=== PATIENT | female | born 1940 | race Two or more races ===

== ENCOUNTER 2023-02-18 07:11 | Day surgery (SDC) | payer MEDICARE, MEDICAID ==
[~2023-02-18] VITALS: Ht 170.2 cm; Wt 90.7 kg
[~2023-02-18 07:11] MED LIST: AMLO1TAB23 PO; ESCI1TAB37 PO; HYDR-4296 PO; INSU70IN3 SC; LEVO50TA7 PO; LOSA100T33 PO; METF-370 PO; OMEG300C7 OR; ROSU10TA16 PO
[2023-02-18] MEDS ORDERED: LIDOCAINE VISCOUS 2% 15ML UD MT STA (07:31)
[2023-02-18] MEDS ORDERED: fentaNYL CITRATE 100 MCG/2 ML VL IV ONE (07:45)
[2023-02-18] MEDS ORDERED: MIDAZOLAM HCL 2MG/2ML 2ml VIAL (1mg/ml) IV ONE (07:45)
[2023-02-18] MEDS ORDERED: MIDAZOLAM HCL 2MG/2ML 2ml VIAL (1mg/ml) ONE (08:16)
[2023-02-18] MEDS ORDERED: fentaNYL CITRATE 100 MCG/2 ML VL ONE (08:16)
[2023-02-18 08:40] VITALS: BP 136/63
[2023-02-18 08:57] VITALS: BP 97/50
[2023-02-18 09:12] VITALS: BP 137/56
[2023-02-18 09:27] VITALS: BP 138/54
[2023-02-18 09:42] VITALS: BP 130/63
[2023-02-18 09:54] VITALS: BP 162/70
== END 2023-02-18 10:06 | disposition home or self-care (01) ==
LOC: CATH 07:11
PROVIDERS: ATTEND Internal Medicine Cardiovascular Disease
DX: I08.2 Rheumatic disorders of both aortic and tricuspid valves (principal); I10 Essential (primary) hypertension; E11.9 Type 2 diabetes mellitus without complications; G47.33 Obstructive sleep apnea (adult) (pediatric); E66.9 Obesity, unspecified; Z79.899 Other long term (current) drug therapy; Z79.84 Long term (current) use of oral hypoglycemic drugs
CPT/HCPCS: 93312; J2250; J3010; J7060; 99152

== ENCOUNTER 2023-02-22 07:13 | Day surgery (SDC) | payer MEDICARE, MEDICAID ==
[~2023-02-22] VITALS: Ht 170.2 cm; Wt 90.7 kg
[2023-02-22] MEDS ORDERED: ANGIOMAX 250 MG VIAL IV ONE (08:07)
[2023-02-22] MEDS ORDERED: fentaNYL CITRATE 100 MCG/2 ML VL ONE (08:07)
[2023-02-22] MEDS ORDERED: MIDAZOLAM HCL 2MG/2ML 2ml VIAL (1mg/ml) ONE (08:08)
[2023-02-22] MEDS ORDERED: SODIUM CHL 0.9% 0 ML ONE (08:08)
[2023-02-22] MEDS ORDERED: LIDOCAINE 2%HCL (LOCAL ANESTH.) INJ 20ML MDV ONE (08:08)
[2023-02-22] MEDS ORDERED: IODIXANOL 320MG/ML 100ML BTL IV ONE (09:01)
[2023-02-22] MEDS ORDERED: HYDROcodone-ACET 5/325MG TAB PO ONE (10:15)
== END 2023-02-22 11:34 | disposition home or self-care (01) ==
LOC: CATH 07:13
PROVIDERS: ATTEND Internal Medicine Cardiovascular Disease
DX: I25.10 Atherosclerotic heart disease of native coronary artery without angina pectoris (principal); I05.0 Rheumatic mitral stenosis; R06.09 Other forms of dyspnea; I10 Essential (primary) hypertension; E11.9 Type 2 diabetes mellitus without complications; E66.9 Obesity, unspecified; G47.33 Obstructive sleep apnea (adult) (pediatric); M10.9 Gout, unspecified; Z79.899 Other long term (current) drug therapy
CPT/HCPCS: 76937; 93460; C1757; C1769; C1894; J1644; J2250; J3010; J7030; Q9967; 99152; 99153